=== PATIENT | female | born 1990 | race Caucasian/White ===

== ENCOUNTER 2017-01-06 21:15 | Emergency (ER) | payer OTHER ==
[2017-01-06] MEDS ORDERED: Ketorolac 60 MG/2 ML SDV IM ONE (22:18)
[2017-01-06] MEDS ORDERED: Acetaminophen/HYDROcodone 325-5 MG Tab PO ONE (22:21)
--- NOTE | 2017-01-06 22:25 | EDM.PDOC ---
ED HPI LOWER BACK PAIN/INJURY - General Chief Complaint: Back Pain or Injury Stated Complaint: BACK PAIN Time Seen by Provider: 01/06/17 21:33 Source of Information: Reports: Patient History Limitations: Reports: No limitations - History of Present Illness INITIAL COMMENTS - FREE TEXT/NARRATIVE: HISTORY AND PHYSICAL: History of present illness: [26-year-old female with no significant past medical history now came to the emergency department after injuring her low back. Patient is entering a "[employer] competition "and was gaining tonight by lifting 300 pounds in a " lift. " She experienced a sudden onset of pain in the right low back radiating into her buttock. Patient with no loss of bowel or bowel bladder control and no numbness or weakness her legs however she does have severe pain with movement. Denies spinal pain. No prior injury herniated disc or back problems. Review of systems: As per history of present illness and below otherwise all systems reviewed and negative. Past medical history: As per history of present illness and as reviewed below otherwise noncontributory. Surgical history: As per history of present illness and as reviewed below otherwise noncontributory. Social history: No reported history of drug or alcohol abuse. Family history: As per history of present illness and as reviewed below otherwise noncontributory. Physical exam: HEENT: Atraumatic, normocephalic, pupils reactive, negative for conjunctival pallor or scleral icterus, mucous membranes moist, throat clear, neck supple, nontender, trachea midline. Lungs: Clear to auscultation, breath sounds equal bilaterally, chest nontender. Heart: S1S2, regular, negative for clicks, rubs, or JVD. Abdomen: Soft, nondistended, nontender. Negative for masses or hepatosplenomegaly. Negative for costovertebral tenderness. Pelvis: Stable nontender. Genitourinary: Deferred. Rectal: Deferred. Extremities: Atraumatic, negative for cords or calf pain. Neurovascular unremarkable. Neuro: Awake, alert, oriented. Cranial nerves II through XII unremarkable. Cerebellum unremarkable. Motor and sensory unremarkable throughout. Exam nonfocal. No saddle anesthesia negative straight leg raise bilaterally neurovascularly intact bilateral lower extremity with normal and symmetrical strength sensation and reflexes. Diagnostics: [] Therapeutics: [] Impression: [] Plan: [Signs and symptoms consistent with right lumbar strain. No signs of spinal fracture. No spinal tenderness whatsoever. No clinical evidence of cauda equina syndrome. Negative straight leg raise. Discussed with patient use of anti- inflammatory and antispasmodic medications as needed. Patient aware not to drink alcohol with antispasmodic medications. Patient is aware to abstain from sinus activity until her symptoms are completely resolved and even then I recommended against it given the high risk of significant and even debilitating injury. Patient will make her on decisions regarding his activity. No further workup or treatment indicated. Patient and agree with outpatient followup. Strict return precautions given Definitive disposition and diagnosis as appropriate pending reevaluation and review of above. 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 Musculoskeletal History: Reports: None Neurological History: Reports: None Psychiatric History: Reports: None Endocrine/Metabolic History: Reports: None Hematologic History: Reports: None Immunologic History: Reports: None Oncologic (Cancer) History: Reports: None Dermatologic History: Reports: None - Infectious Disease History Infectious Disease History: Reports: None - Past Surgical History Head Surgeries/Procedures: Reports: None HEENT Surgical History: Reports: None Cardiovascular Surgical History: Reports: None Respiratory Surgical History: Reports: None GI Surgical History: Reports: None Female Surgical History: Reports: None Endocrine Surgical History: Reports: None Neurological Surgical History: Reports: None Musculoskeletal Surgical History: Reports: None Dermatological Surgical History: Reports: None Social & Family History - Family History Family Medical History: Noncontributory - Tobacco Use Smoking Status *Q: Never Smoker Second Hand Smoke Exposure: No - Caffeine Use Caffeine Use: Reports: None - Recreational Drug Use Recreational Drug Use: No ED ROS GENERAL - Review of Systems Review Of Systems: See Below (History of present illness) ED EXAM,LOWER BACK PAIN/INJURY - Physical Exam Exam: See Below (History of present illness) Course - Vital Signs Last Recorded V/S: Last Vital Signs Temp 37.0 C 01/06/17 22:58 Pulse 70 01/06/17 22:58 Resp 16 01/06/17 22:58 BP 120/74 01/06/17 22:58 Pulse Ox 98 01/06/17 22:58 - Orders/Labs/Meds Meds: Medications Discontinued Medications Generic Name Dose Route Start Last Admin Trade Name Leroy PRN Reason Stop Dose Admin Hydrocodone Bitart/Acetaminophen 1 tab 01/06/17 22:21 01/06/17 22:39 [place] 325-5 Mg PO 01/06/17 22:22 1 tab ONETIME ONE Administration Ketorolac Tromethamine 60 mg 01/06/17 22:18 01/06/17 22:39 Toradol IM 01/06/17 22:19 60 mg ONETIME ONE Administration Orphenadrine Citrate 60 mg 01/06/17 22:21 01/06/17 22:39 Norflex IM 01/06/17 22:22 60 mg Q12H ONE Administration Departure - Departure Time of Disposition: 22:23 Disposition: Home, Self-Care 01 Condition: fair Clinical Impression: Lumbar strain, Back spasm Prescriptions: Cyclobenzaprine [Flexeril] 10 mg PO TID #15 tablet Instructions: Back Injury Prevention, [id number], Back Pain, Adult, Easy-to- Read, Muscle Strain, [id number] Referrals: PCP,None [Primary Care Provider] - Forms: ED Department Discharge Additional Instructions: You have lumbar, or low back, strain. This is an injury to the muscles. You also have low back spasm, which is painful muscle contracture as a result of injury. Take 800 mg of ibuprofen every 6 hours and use Flexeril ,a muscle relaxant that has been prescribed for you, as needed for spasm. Use ice for the first day and then do gentle stretches and warms soaks. Void strenuous activity until your symptoms are completely resolved. Return immediately for new severe or worsening symptoms
[2017-01-06 23:02] VITALS: BP 120/74
== END 2017-01-06 22:58 | disposition home or self-care (01) ==
LOC: MW.ED 21:15
DX: S39.012A Strain of muscle, fascia and tendon of lower back, initial encounter (principal); X58.XXXA Exposure to other specified factors, initial encounter
CPT/HCPCS: 96372; 99283; A9270; J1885; J2360

== ENCOUNTER 2017-12-26 07:40 | Day surgery (SDC) | payer BC ==
[~2017-12-26 07:40] MED LIST: Bupivacaine 0.5% 30 ML SDV ONE; Lactated Ringers 1,000 ML IV SCH; Lidocaine 2% 5 ML SDV ONE; Midazolam 1 MG/ML 2 ML SDV ONE; Propofol 200 MG/20 ML SDV ONE; Rocuronium 10 MG/ML 10 ML Syringe ONE; Sodium Chloride 0.9% 10 ML Syringe FLUSH PRN; Sodium Chloride 0.9% 2.5 ML Syringe FLUSH PRN; Succinylcholine 200 MG/10 ML MDV ONE; ceFAZolin 1 GM in Premix Bag 1 BAG IV ONE; fentaNYL 100 MCG/2 ML SDV ONE
[2017-12-26] MEDS ORDERED: Scopolamine 1.5 MG Transdermal Patch ONE (08:27)
[2017-12-26] MEDS ORDERED: Dexamethasone 4 MG/ML 5 ML MDV ONE (09:21)
[2017-12-26] MEDS ORDERED: fentaNYL 100 MCG/2 ML SDV ONE (09:40)
[2017-12-26] MEDS ORDERED: fentaNYL 100 MCG/2 ML SDV IVPUSH PRN (09:52)
[2017-12-26] MEDS ORDERED: Glycopyrrolate 0.2 MG/ML SDV ONE (09:56)
[2017-12-26] MEDS ORDERED: Neostigmine Methylsulfate 1 MG/ML 5 ML Syringe ONE (09:56)
--- NOTE | 2017-12-26 09:56 | PCM.PREANE ---
Preanesthetic Assessment - Anesthesia/Transfusion/Family Hx Anesthesia History: No Prior Anesthesia Family History of Anesthesia Reaction: No Transfusion History: No Prior Transfusion(s) Intubation History: Unknown - Review of Systems General: No Symptoms Pulmonary: No Symptoms Cardiovascular: No Symptoms Gastrointestinal: Abdominal Pain Neurological: No Symptoms Other: Reports: None - Physical Assessment Height: 1.68 m Weight: 66.678 kg ASA Class: 1 Mental Status: Alert & Oriented x3 Airway Class: Mallampati = 2 Dentition: Reports: Normal Dentition Thyro-Mental Finger Breadths: 3 Mouth Opening Finger Breadths: 3 ROM/Head Extension: Full Lungs: Clear to Auscultation, Normal Respiratory Effort Cardiovascular: Regular Rate, Regular Rhythm - Allergies Allergies/Adverse Reactions: Allergies Allergy/AdvReac Type Severity Reaction Status Date / Time No Known Allergies Allergy Verified 12/21/17 10:55 - Blood Blood Available: No - Anesthesia Plan Pre-Op Medication Ordered: None - Acknowledgements Anesthesia Type Planned: General Anesthesia Pt an Appropriate Candidate for the Planned Anesthesia: Yes Alternatives and Risks of Anesthesia Discussed w Pt/Guardian: Yes Pt/Guardian Understands and Agrees with Anesthesia Plan: Yes PreAnesthesia Questionnaire - Past Health History Medical/Surgical History: Denies Medical/Surgical History HEENT History: Reports: None Cardiovascular History: Reports: None Respiratory History: Reports: None Gastrointestinal History: Reports: Other (See Below) (cholecustitis) Genitourinary History: Reports: None 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, Other (See Below) (h/o ovarian cyst) Musculoskeletal History: Reports: None Neurological History: Reports: None Psychiatric History: Reports: None Endocrine/Metabolic History: Reports: None Hematologic History: Reports: None Immunologic History: Reports: None Oncologic (Cancer) History: Reports: None Dermatologic History: Reports: None - Infectious Disease History Infectious Disease History: Reports: None - Past Surgical History Head Surgeries/Procedures: Reports: None HEENT Surgical History: Reports: None Cardiovascular Surgical History: Reports: None Respiratory Surgical History: Reports: None GI Surgical History: Reports: None Female Surgical History: Reports: None Endocrine Surgical History: Reports: None Neurological Surgical History: Reports: None Musculoskeletal Surgical History: Reports: None Dermatological Surgical History: Reports: None - SUBSTANCE USE Smoking Status *Q: Never Smoker Second Hand Smoke Exposure: No Recreational Drug Use History: No - HOME MEDS Home Medications: Home Meds . [No Known Home Meds] 12/21/17 [History] - CURRENT (IN HOUSE) MEDS Current Meds: Current Medications Fentanyl (Sublimaze) 50 - 100 mcg IVPUSH Q5M PRN PRN Reason: Pain Stop: 12/26/17 10:52 Lactated Ringer's (Ringers, Lactated) 1,000 mls @ 125 mls/hr IV ASDIRECTED KALEY Sodium Chloride (Saline Flush) 10 ml FLUSH ASDIRECTED PRN PRN Reason: Keep Vein Open Sodium Chloride (Saline Flush) 2.5 ml FLUSH ASDIRECTED PRN PRN Reason: Keep Vein Open Discontinued Medications Bupivacaine HCl (Marcaine 0.5%) Confirm Administered Dose 30 ml .ROUTE .STK-MED ONE Stop: 12/26/17 07:35 Dexamethasone (Dexamethasone) Confirm Administered Dose 20 mg .ROUTE .STK-MED ONE Stop: 12/26/17 09:22 Fentanyl (Sublimaze) Confirm Administered Dose 100 mcg .ROUTE .STK-MED ONE Stop: 12/26/17 07:30 Fentanyl (Sublimaze) Confirm Administered Dose 100 mcg .ROUTE .STK-MED ONE Stop: 12/26/17 09:41 Cefazolin Sodium/Dextrose 1 gm (/ Premix) 50 mls @ 100 mls/hr IV ONETIME ONE Stop: 12/25/17 11:14 Cefazolin Sodium/Dextrose (Ancef) Confirm Administered Dose 50 mls @ as directed .ROUTE .STK-MED ONE Stop: 12/26/17 08:28 Lidocaine (Xylocaine-Mpf 2%) Confirm Administered Dose 5 ml .ROUTE .STK-MED ONE Stop: 12/26/17 07:30 Midazolam HCl (Versed 1 Mg/Ml) Confirm Administered Dose 2 mg .ROUTE .STK-MED ONE Stop: 12/26/17 07:30 Propofol (Diprivan 20 Ml) Confirm Administered Dose 200 mg .ROUTE .STK-MED ONE Stop: 12/26/17 07:30 Rocuronium [place] (Zemuron) Confirm Administered Dose 100 mg .ROUTE .STK-MED ONE Stop: 12/26/17 07:30 Scopolamine (Transderm-Scop) Confirm Administered Dose 1.5 mg .ROUTE .STK-MED ONE Stop: 12/26/17 08:28 Succinylcholine Chloride (Quelicin) Confirm Administered Dose 200 mg .ROUTE .[facility] ONE Stop: 12/26/17 07:31
[2017-12-26] MEDS ORDERED: Ondansetron 4 MG/2 ML SDV ONE (09:58)
[2017-12-26] MEDS ORDERED: Ketorolac 30 MG/ML SDV ONE (09:58)
--- NOTE | 2017-12-26 10:04 | PCM.OPNOTE ---
- General Post-Op/Procedure Note Date of Surgery/Procedure: 12/26/17 Operative Procedure(s): Laparoscopic cholecystectomy Findings: Normal appearing gallbladder. Pre Op Diagnosis: Biliary dyskinesia Post-Op Diagnosis: same Anesthesia Technique: General ET Tube Primary Surgeon: Michelle Cheung Secondary Surgeon: Madi Alfaro Role of Bellows Tester: Resident EBL in mLs: 5 Condition: Good
--- NOTE | 2017-12-26 10:54 | PCM.POSTAN ---
POST ANESTHESIA ASSESSMENT - MENTAL STATUS Mental Status: Alert, Oriented - RESPIRATORY Respiratory Status: Respiratory Rate WNL, Airway Patent, O2 Saturation Stable - CARDIOVASCULAR CV Status: Pulse Rate WNL, Blood Pressure Stable - GASTROINTESTINAL GI Status: No Symptoms - PAIN Pain Score: 2 - POST OP HYDRATION Hydration Status: Adequate & Stable - OBSERVATIONS Free Text/Narrative:: no anesthesia problems
[2017-12-26 12:57] VITALS: BP 118/67
--- NOTE | 2017-12-26 13:05 | PCM48HPAN ---
Post Anesthesia Note - EVALUATION WITHIN 48HRS OF ANESTHETIC Vital Signs in Normal Range: Yes Patient Participated in Evaluation: Yes Respiratory Function Stable: Yes Airway Patent: Yes Cardiovascular Function Stable: Yes Hydration Status Stable: Yes Pain Control Satisfactory: Yes Nausea and Vomiting Control Satisfactory: Yes Mental Status Recovered: Yes Resp Rate: 16
--- NOTE | 2017-12-26 13:29 | OR ---
SURGEON: KATHY FELDMAN MD DATE OF PROCEDURE: 12/26/2017 PREOPERATIVE DIAGNOSIS: Biliary dyskinesia. POSTOPERATIVE DIAGNOSIS: Biliary dyskinesia. PROCEDURE PERFORMED: Laparoscopic cholecystectomy. LOCATOR: Dr. Madi Alfaro, resident. ANESTHESIA: General endotracheal anesthesia. FLUIDS: 900 mL of crystalloid. URINE OUTPUT: 375 mL. ESTIMATED BLOOD LOSS: 10 mL. FINDINGS: Normal appearing gallbladder. COMPLICATIONS: None. INDICATIONS: The patient is a 27-year-old female, who presents with biliary dyskinesia. I explained to her that the treatment for this is removal of the gallbladder. We discussed the laparoscopic and open approaches. I will attempt this laparoscopically, but should I be unable to complete it safely, I will convert it to open. We discussed the expected perioperative course and the risks of the procedure including bleeding, infection, or damage to surrounding structures. The patient verbalized understanding and wishes to proceed. PROCEDURE IN DETAIL: The patient was brought into the OR and placed on the OR table in supine position. A time-out was completed verifying the patient's name, age, date of , allergies, and procedure to be performed. General endotracheal anesthesia was induced. The left arm was tucked to the patient's side and a Lewis catheter placed. The abdomen was prepped and draped in usual standard fashion. I anesthetized the infraumbilical fold with 0.5% Marcaine plain. An #11 blade was used to make an incision along the infraumbilical fold. Cautery was used to dissect down to the level of the subcutaneous fat. Retractors were used to bluntly dissect down to the level of fascia. The fascia was elevated with Narciso's and incised sharply with a Metzenbaum scissors. I then identified the posterior rectus sheath. This was elevated and incised similarly. The peritoneum was then identified. This was grasped with hemostats and incised sharply. A 12 mm Arya trocar was placed in the abdomen, and the abdomen insufflated to a pressure of 13 mmHg. A 5 mm 30-degree scope was inserted in the abdomen and I inspected the area underneath my incision. There appeared to be no damage to surrounding structures. 5 mm trocars were placed under direct visualization in the following locations, one in the epigastric area, one along the right flank, and one 2 fingerbreadths below the right subcostal margin in the midclavicular line. The patient was placed in reverse Trendelenburg position and airplaned slightly to the left. The dome of the gallbladder was grasped with an atraumatic grasper through the right flank port and elevated above the dome of the liver. The infundibulum was identified and grasped with another atraumatic grasper through the midclavicular port. This was retracted to the right and inferiorly. Using a combination of hook cautery and blunt dissection with the [place], we were able to achieve critical view. Cystic duct and artery were doubly clipped and ligated. Electrocautery was used to remove the gallbladder from the remainder of the gallbladder fossa. The gallbladder was placed in an EndoCatch bag and removed through the infraumbilical port site. The 12 mm Arya trocar was placed back in the abdomen and the operative site inspected. It appeared to be hemostatic and the clips were in good position with no evidence of bile leakage. The trocars were then removed under direct visualization, and the abdomen allowed to desufflate. The fascia at the infraumbilical site was closed with interrupted 0 Vicryl suture. The infraumbilical port site was closed with interrupted 3-0 Vicryl and the subcutaneous fat in a running 4-0 Monocryl suture and the skin. The 5 mm trocar sites were closed with interrupted 4-0 Monocryl suture. Steri-Strips and sterile dressings were applied. The patient tolerated the procedure well and was taken to PACU in stable condition. MARJORIE MCNAIR /[id number]
== END 2017-12-26 13:01 | disposition home or self-care (01) ==
LOC: MW.SDS 07:40
PROVIDERS: ATTEND Surgery
DX: K81.1 Chronic cholecystitis (principal)
CPT/HCPCS: 47562; 81025; J0330; J0690; J1100; J1885; J2250; J2405; J3010; 88304; J2704

== ENCOUNTER 2019-02-14 17:18 | Emergency (ER) | payer OTHER ==
[2019-02-14] MEDS ORDERED: Metoclopramide 10 MG/2 ML SDV IV ONE (17:34)
[2019-02-14] MEDS ORDERED: Ondansetron 4 MG/2 ML SDV IVPUSH ONE (17:34)
[2019-02-14] MEDS ORDERED: diphenhydrAMINE 50 MG/ML SDV IVPUSH ONE (17:34)
[2019-02-14] MEDS ORDERED: Ketorolac 30 MG/ML SDV IVPUSH ONE (17:34)
[2019-02-14] MEDS ORDERED: Sodium Chloride 0.9% 1,000 ML IV ONE (17:34)
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
[2019-02-14 19:18] VITALS: BP 112/64
== END 2019-02-14 18:37 | disposition home or self-care (01) ==
LOC: MW.ED 17:18
DX: G43.909 Migraine, unspecified, not intractable, without status migrainosus (principal)
CPT/HCPCS: 96361; 96374; 96375; 99283; J1200; J1885; J2405; J2765; J7040

== ENCOUNTER 2019-10-19 23:51 | Emergency (ER) | payer OTHER ==
--- NOTE | 2019-10-20 00:45 | EDM.PDOC ---
ED HPI GENERAL MEDICAL PROBLEM - General Chief Complaint: Skin Complaint Stated Complaint: RADH EVERYWHERE Time Seen by Provider: 10/20/19 00:54 Source of Information: Reports: Patient History Limitations: Reports: No Limitations - History of Present Illness INITIAL COMMENTS - FREE TEXT/NARRATIVE: HISTORY OF PRESENT ILLNESS: Patient is a 29-year-old female presents with rash. Approximately 10 days ago, she was diagnosed with tonsillitis by clinical examination. According to patient, no strep test was done. She was started on amoxicillin which she has been taking intermittently and has missed several doses. States sore throat has now resolved. Today, however she developed a diffuse pruritic maculopapular rash. There is no mucous membrane involvement. No palm or sole involvement. Denies any pain. No fever. No difficulty breathing or wheezing. Denies any other new medications, products, etc. REVIEW OF SYSTEMS: Other than the symptoms associated with the present events, the following is reported with regard to recent health: General: (-) fever. HENT: (-) congestion. Respiratory: (-) cough. Cardiovascular: (-) chest pain. GI: (-) abdominal pain. : (-) urinary complaints. Musculoskeletal: (-) other aches or pains. Endocrine: (-) generalized weakness. Neurological: (-) localized weakness. Skin: (+) rash PAST MEDICAL HISTORY: reviewed as per nursing notes SOCIAL HISTORY: reviewed as per nursing notes, MEDICATIONS: Per nurse's note ALLERGIES: Per nurse's note, reviewed by me PHYSICAL EXAMINATION: GENERALIZED APPEARANCE: well developed, well nourished in no distress VITAL SIGNS: Per nurse's note, reviewed by me SKIN: Warm, dry; (-) cyanosis; (+) diffuse macularpapular rash. no target lesions. no vesicles. no MM or palm/sole involvement HEAD: (-) scalp swelling, (-) tenderness. EYES: (-) conjunctival pallor, (-) scleral icterus. ENMT: (-) stridor; mucous membranes moist. No pharyngeal erythema. Uvula midline. No trismus. No phonation changes. Airway widely patent. NECK: (-) tenderness, (-) stiffness, CHEST AND RESPIRATORY: (-) rales, (-) rhonchi, (-) wheezes; breath sounds equal bilaterally. HEART AND CARDIOVASCULAR: (-) irregularity; (-) murmur, (-) gallop. ABDOMEN AND GI: Soft; (-) tenderness, (-) guarding, (-) rebound, (-) palpable masses, EXTREMITIES: (-) deformity, (-) edema. NEURO AND PSYCH: alert and oriented Cranial nerves grossly intact; strength symmetric. gait steady EMERGENCY DEPARTMENT COURSE AND TREATMENT: Patient's condition remained stable during Emergency Department evaluation. Etiology of rash likely due to side effect of amoxicillin. No evidence of anaphylaxis at this time. Will treat symptomatically with Benadryl. Expect rash to resolve with tincture of time. PLAN AND FOLLOW-UP: Patient received written and verbal instructions regarding this condition. Return immediately with any new or worsening symptoms. Discontinue use of amoxicillin and do not use any penicillin-containing products unless instructed otherwise by PCP. To have allergy testing done. Follow up to be arranged by patient with pcp in 1-2 days for further evaluation. Patient expressed verbal understanding. 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: Musculoskeletal History: Reports: None Neurological History: Reports: None Psychiatric History: Reports: None Endocrine/Metabolic History: Reports: None Hematologic History: Reports: Other (See Below) Other Hematologic History: thrombocytopenia during Immunologic History: Reports: None Oncologic (Cancer) History: Reports: None Dermatologic History: Reports: None - Infectious Disease History Infectious Disease History: Reports: None - Past Surgical History Head Surgeries/Procedures: Reports: None GI Surgical History: Reports: Cholecystectomy Female Surgical History: Reports: Breast Biopsy Social & Family History - Family History Family Medical History: Noncontributory OBGYN: Reports: Oncologic: Reports: Breast - Caffeine Use Caffeine Use: Reports: None ED ROS GENERAL - Review of Systems Review Of Systems: See Below (see dictation) ED EXAM, SKIN/RASH Exam: See Below (see dictation) Course - Vital Signs Last Recorded V/S: Last Vital Signs Temp 97.8 F 10/20/19 01:03 Pulse 79 10/20/19 01:03 Resp 14 10/20/19 01:03 BP 111/73 10/20/19 01:03 Pulse Ox 96 10/20/19 01:03 Departure - Departure Time of Disposition: 00:43 Disposition: Home, Self-Care 01 Condition: Good Clinical Impression: Rash and nonspecific skin eruption - Discharge Information *PRESCRIPTION DRUG MONITORING PROGRAM REVIEWED*: Not Applicable *COPY OF PRESCRIPTION DRUG MONITORING REPORT IN PATIENT ROSELIA: Not Applicable Prescriptions: diphenhydrAMINE [Benadryl] 25 mg PO QID PRN #30 tablet PRN Reason: itching/rash Instructions: Drug Rash, Rash Referrals: Jay Zhang [Ordering Only Provider] - 2 Days Forms: ED Department Discharge Additional Instructions: The following information is given to patients seen in the emergency department who are being discharged to home. This information is to outline your options for follow-up care. We provide all patients seen in our emergency department with a follow-up referral. The need for follow-up, as well as the timing and circumstances, are variable depending upon the specifics of your emergency department visit. If you don't have a primary care physician on staff, we will provide you with a referral. We always advise you to contact your personal physician following an emergency department visit to inform them of the circumstance of the visit and for follow-up with them and/or the need for any referrals to a consulting specialist. The emergency department will also refer you to a specialist when appropriate. This referral assures that you have the opportunity for follow-up care with a specialist. All of these measure are taken in an effort to provide you with optimal care, which includes your follow-up. Under all circumstances we always encourage you to contact your private physician who remains a resource for coordinating your care. When calling for follow-up care, please make the office aware that this follow-up is from your recent emergency room visit. If for any reason you are refused follow-up, please contact the [facility] Emergency Department at and asked to speak to the emergency department charge nurse. Sepsis Event Note - Evaluation Sepsis Screening Result: No Definite Risk - Focused Exam Vital Signs: Vital Signs Temp Pulse Resp BP Pulse Ox 10/20/19 01:03 97.8 F 79 14 111/73 96 10/20/19 00:06 97.1 F 84 18 132/96 H Date Exam was Performed: 10/20/19 Time Exam was Performed: 05:02
[2019-10-20 01:03] VITALS: BP 111/73; PULSE 79
== END 2019-10-20 01:04 | disposition home or self-care (01) ==
LOC: MW.ED 23:51
DX: R21 Rash and other nonspecific skin eruption (principal)
CPT/HCPCS: 99282; 99283

== ENCOUNTER 2020-08-11 05:26 | Inpatient (IN) | payer OTHER ==
[2020-08-11] MEDS ORDERED: Sodium Chloride 0.9% 10 ML Syringe FLUSH PRN (05:29)
[2020-08-11] MEDS ORDERED: Citric Acid/Sodium Citrate Solution 30 ML Cup PO ONE (05:29)
[2020-08-11] MEDS ORDERED: Sodium Chloride 0.9% 2.5 ML Syringe FLUSH PRN (05:29)
[2020-08-11] MEDS ORDERED: Sodium Chloride 0.9% 10 ML SDV IV PRN (05:29)
[2020-08-11] MEDS ORDERED: Oxytocin/0.9 % Sodium Chloride 30 UNIT/500 ML BAG IV SCH (05:30)
[2020-08-11] MEDS: Lactated Ringers 1,000 ML IV SCH ×4 (06:00→20:02)
[2020-08-11] MEDS ORDERED: Morphine PF 10 MG/10 ML SDV ONE (07:36)
[2020-08-11] MEDS ORDERED: Citric Acid/Sodium Citrate Solution 30 ML Cup ONE (07:50)
[2020-08-11] MEDS ORDERED: Clindamycin Phosphate in D5W 900 MG in Premix Bag 1 BAG IV ONE ×2 (08:00)
--- NOTE | 2020-08-11 08:08 | PCM.PREANE ---
Preanesthetic Assessment - Anesthesia/Transfusion/Family Hx Anesthesia History: Prior Anesthesia Without Reaction Family History of Anesthesia Reaction: No Transfusion History: No Prior Transfusion(s) Intubation History: Unknown - Review of Systems General: No Symptoms, Other Pulmonary: Other (runny nose) Cardiovascular: No Symptoms Gastrointestinal: No Symptoms Neurological: No Symptoms Other: Reports: None - Physical Assessment NPO Status Date: 08/11/20 NPO Status Time: 07:50 (bicitra) Vital Signs: 134/90, 19, 90, spo2 99% Height: 1.65 m Weight: 93.894 kg ASA Class: 2 Mental Status: Alert & Oriented x3 Airway Class: Mallampati = 2 Dentition: Reports: Normal Dentition Thyro-Mental Finger Breadths: 3 Mouth Opening Finger Breadths: 3 ROM/Head Extension: Full Lungs: Clear to Auscultation, Normal Respiratory Effort Cardiovascular: Regular Rate, Regular Rhythm - Lab Values: Laboratory Last Values WBC 10.29 K/uL (4.0-11.0) 08/11/20 06:27 RBC 3.87 M/uL (4.30-5.90) L 08/11/20 06:27 Hgb 10.7 g/dL (12.0-16.0) L 08/11/20 06:27 Hct 33.9 % (36.0-46.0) L 08/11/20 06:27 MCV 87.6 fL (80.0-98.0) 08/11/20 06:27 MCH 27.6 pg (27.0-32.0) 08/11/20 06:27 MCHC 31.6 g/dL (31.0-37.0) 08/11/20 06:27 RDW Std Deviation 43.0 fl (28.0-62.0) 08/11/20 06:27 RDW Coeff of Veronica 14 % (11.0-15.0) 08/11/20 06:27 Plt Count 126 K/uL (150-400) L 08/11/20 06:27 MPV 13.90 fL (7.40-12.00) H 08/11/20 06:27 Nucleated RBC % 0.0 /100WBC 08/11/20 06:27 Nucleated RBCs # 0 K/uL 08/11/20 06:27 Blood Type A NEGATIVE 08/11/20 06:27 Antibody Screen NEGATIVE 08/11/20 06:27 - Allergies Allergies/Adverse Reactions: Allergies Allergy/AdvReac Type Severity Reaction Status Date / Time Penicillins Allergy Hives Verified 08/05/20 08:22 - Anesthesia Plan Pre-Op Medication Ordered: Other (bicitra) - Acknowledgements Anesthesia Type Planned: Spinal (The patient understands and accepts the anesthetic risks and benefits with spinal anesthesia including possible failure regarding conversion to general anesthetic. All questions answered. Patient signed consent. 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: Musculoskeletal History: Reports: None Other Musculoskeletal History: hx fx leg Neurological History: Reports: None Psychiatric History: Reports: None Endocrine/Metabolic History: Reports: Obesity/BMI 30+ Hematologic History: Reports: Other (See Below) Other Hematologic History: thrombocytopenia during Immunologic History: Reports: None Oncologic (Cancer) History: Reports: None Dermatologic History: Reports: None - Infectious Disease History Infectious Disease History: Reports: Chicken Pox - Past Surgical History Head Surgeries/Procedures: Reports: None HEENT Surgical History: Reports: None Cardiovascular Surgical History: Reports: None Respiratory Surgical History: Reports: None GI Surgical History: Reports: Cholecystectomy Female Surgical History: Reports: Breast Biopsy, Section Endocrine Surgical History: Reports: None Neurological Surgical History: Reports: None Dermatological Surgical History: Reports: None - History Comment History Comment: case delay waiting for antibiotics - SUBSTANCE USE Tobacco Use Status *Q: Never Tobacco User Second Hand Smoke Exposure: No Days Per Week of Alcohol Use: 0 (while . drinks "recreationally" when she is not .) Recreational Drug Use History: No - HOME MEDS Home Medications: Home Meds . [No Known Home Meds] 08/05/20 [History] - CURRENT (IN HOUSE) MEDS Current Meds: Current Medications Oxytocin/Sodium Chloride (Oxytocin 30 Unit/500 Ml-Ns) 30 unit in 500 mls @ 250 mls/hr IV TITRATE KALEY Lactated Ringer's (Ringers, Lactated) 1,000 mls @ 500 mls/hr IV BOLUS KALEY Last Admin: 08/11/20 07:45 Dose: 500 mls/hr Documented by: Clindamycin Phosphate 900 mg/ (Premix) 50 mls @ 100 mls/hr IV ONETIME ONE Stop: 08/11/20 08:29 Gentamicin Sulfate 80 mg/ (Sodium Chloride) 52 mls @ 100 mls/hr IV ONETIME ONE Stop: 08/11/20 08:32 Sodium Chloride (Saline Flush) 10 ml FLUSH ASDIRECTED PRN PRN Reason: Keep Vein Open Sodium Chloride (Saline Flush) 2.5 ml FLUSH ASDIRECTED PRN PRN Reason: Keep Vein Open Sodium Chloride (Normal Saline) 10 ml IV ASDIRECTED PRN PRN Reason: IV Use Discontinued Medications Citric Acid/Sodium Citrate (Bicitra Solution) 30 ml PO ONETIME ONE Stop: 08/11/20 05:30 Last Admin: 08/11/20 07:52 Dose: 30 ml Documented by: Citric Acid/Sodium Citrate (Bicitra Solution) Confirm Administered Dose 30 ml .ROUTE .STK-MED ONE Stop: 08/11/20 07:51 Morphine Sulfate (Duramorph Pf) Confirm Administered Dose 10 mg .ROUTE .STK-MED ONE Stop: 08/11/20 07:37
[2020-08-11] MEDS ORDERED: Oxytocin 10 Units/1 ML SDV ONE (08:14)
[2020-08-11] MEDS ORDERED: Acetaminophen/oxyCODONE 325-5 MG Tab PO PRN ×3 (08:48→10:09)
[2020-08-11] MEDS ORDERED: fentaNYL 100 MCG/2 ML SDV IVPUSH PRN (08:48)
[2020-08-11] MEDS ORDERED: Nalbuphine 10 MG/1 ML Vial IVPUSH PRN (08:48)
[2020-08-11] MEDS ORDERED: Ondansetron 4 MG/2 ML SDV ONE ×2 (08:50→09:18)
[2020-08-11] MEDS ORDERED: ePHEDrine 50 MG/ML SDV ONE (08:50)
[2020-08-11] MEDS ORDERED: Dexamethasone 4 MG/ML 5 ML MDV ONE (09:11)
[2020-08-11] MEDS ORDERED: Ketorolac 30 MG/ML SDV ONE (09:11)
[2020-08-11] MEDS ORDERED: Lanolin 100% Cream 7 GM Tube TOP PRN (10:09)
[2020-08-11] MEDS ORDERED: diphenhydrAMINE 50 MG/ML SDV IVPUSH PRN (10:09)
[2020-08-11] MEDS ORDERED: Tranexamic Acid 1,000 MG in Sodium Chloride 0.9% 100 ML IV PRN (10:09)
[2020-08-11] MEDS ORDERED: Misoprostol 200 MCG Tab RECTAL PRN (10:09)
[2020-08-11] MEDS ORDERED: Oxytocin 10 Units/1 ML SDV IM PRN (10:09)
[2020-08-11] MEDS ORDERED: Methylergonovine 0.2 MG/1 ML Amp IM PRN (10:09)
[2020-08-11] MEDS ORDERED: Bisacodyl 10 MG Supp RECTAL PRN (10:09)
[2020-08-11] MEDS ORDERED: Oxytocin/Lactated Ringers 30 UNIT/500 ML BAG IV SCH (10:15)
--- NOTE | 2020-08-11 10:19 | PCM.OPNOTE ---
- General Post-Op/Procedure Note Date of Surgery/Procedure: 08/11/20 Operative Procedure(s): Repeat Lower segment Transverse Findings: Live male delivered at 901am , 9/9 weight 3060g Pre Op Diagnosis: 29yo @ 39w0d for repeat Post-Op Diagnosis: same Anesthesia Technique: Spinal Primary Surgeon: Dulce Arreaga Anesthesia Provider: Carlita Pro Pathology: Placenta Fluid Replacement, Intraop: 2,900 Output, Urine Amount: 100 EBL in mLs: 500 Complications: None Condition: Good
--- NOTE | 2020-08-11 10:26 | PCM.POSTAN ---
POST ANESTHESIA ASSESSMENT - MENTAL STATUS Mental Status: Alert, Oriented - RESPIRATORY Respiratory Status: Respiratory Rate WNL, Airway Patent, O2 Saturation Stable - CARDIOVASCULAR CV Status: Pulse Rate WNL, Blood Pressure Stable - GASTROINTESTINAL GI Status: No Symptoms - POST OP HYDRATION Hydration Status: Adequate & Stable
[2020-08-11] MEDS: Ketorolac 30 MG/ML SDV IVPUSH SCH ×3 (11:26→21:31)
[2020-08-11] MEDS: Ondansetron 4 MG/2 ML SDV IVPUSH PRN ×2 (13:06→18:22)
[2020-08-11] MEDS ORDERED: Metoclopramide 10 MG/2 ML SDV IVPUSH ONE (15:03)
[2020-08-11] MEDS ORDERED: Ondansetron 4 MG/2 ML SDV IVPUSH ONE (15:03)
[2020-08-11] MEDS ORDERED: Scopolamine 1.5 MG Transdermal Patch TRDERM PRN (20:16)
[2020-08-11] MEDS: Dexamethasone 10 MG/ML SDV IVPUSH SCH (21:01)
[2020-08-11] MEDS: Docusate Sodium 100 MG Cap PO SCH (22:06)
[2020-08-12] MEDS: Ketorolac 30 MG/ML SDV IVPUSH SCH ×2 (03:34→09:40)
[2020-08-12] MEDS ORDERED: Dexamethasone 10 MG/ML SDV IVPUSH PRN (03:45)
[2020-08-12] MEDS: Dexamethasone 10 MG/ML SDV IVPUSH SCH (04:03)
--- NOTE | 2020-08-12 07:37 | OR ---
SURGEON: WILBERT KWOK DATE OF PROCEDURE: 08/11/2020 PREOPERATIVE DIAGNOSES: 1. A 29-year-old G2, P1-0-0-1 at 39 weeks 0 days for repeat section. 2. She is also Rh-negative, gestational thrombocytopenia. POSTOPERATIVE DIAGNOSES: 1. 29-year-old G2, P1-0-0-1 at 39 weeks 0 days for repeat section. 2. She is also Rh-negative, gestational thrombocytopenia. PROCEDURE: Repeat lower segment section. ANAESTHESIA Spinal ESTIMATED BLOOD LOSS: 500. INTRAVENOUS FLUID: 2900. URINE OUTPUT: 100. NOTES AND FINDINGS: A live male delivered at 9:01 a.m., scores are 9 and 9, weight is 3060 g. DESCRIPTION OF PROCEDURE: The patient was taken to the operating room where spinal anesthesia was performed without difficulty. She was prepared and draped in the dorsal supine with a leftward tilt. A Pfannenstiel skin incision was made in the area of the previous incision and carried down to the fascia with the Bovie. The fascia was incised and extended upwards and laterally. The fascia was then from the rectus muscles inferiorly and superiorly. The rectus muscle was in the midline down to the level of pubic symphysis. The peritoneum was entered in with careful dissection. The lower uterine segment was noted, and Juan Ramon retractor was placed to expose the lower uterine segment. Bladder flap was created without difficulty. The lower uterine incision was then made. Then, the fetus was in cephalic position and was brought to the level of the incision without any difficulty. With fundal pressure, the fetus was delivered. Delayed cord clamping was observed. The was handed to the awaiting conservation engineer. The cord blood gases were obtained. Placenta was delivered by manual massage of the uterine fundus. The uterus was cleaned with laparotomy sponge. The uterus was then repaired in layers; first layer with 0 Vicryl, second layer with 0 Monocryl. Then, the Juan Ramon retractor was removed. The gutters were cleaned. The adnexa were noted to be normal, and the ovaries were also normal. The incision was inspected and noted to be hemostatic. The peritoneum was closed with 3-0 Vicryl. The skin and the muscle were apposed also with 3-0 Vicryl. Then, the fascia was closed with 0 Vicryl. The subcutaneous fat was closed with 3-0 plain gut, and the skin was closed with 3-0 Monocryl on a Isaac needle. All instrument and pad counts were correct x2. The patient tolerated the procedure well and was taken to the recovery room in stable condition. ELIDA MCNAIR /[id number] MTDD
--- NOTE | 2020-08-12 07:59 | PCM.PNPP ---
- General Info Date of Service: 08/12/20 Subjective Update: 29yo P2 s/p repeat nausea improved with scopolamine good pain control Marie out - will follow void Functional Status: Reports: Pain Controlled, Tolerating Diet, Ambulating - Review of Systems General: Reports: No Symptoms HEENT: Reports: No Symptoms Pulmonary: Reports: No Symptoms Cardiovascular: Reports: No Symptoms Gastrointestinal: Reports: No Symptoms Genitourinary: Reports: No Symptoms Musculoskeletal: Reports: No Symptoms Skin: Reports: No Symptoms Neurological: Reports: No Symptoms - General Info Date of Service: 08/12/20 - Patient Data Vital Signs - Most Recent: Last Vital Signs Temp 37.1 C 08/12/20 07:32 Pulse 66 08/12/20 07:32 Resp 20 08/12/20 07:32 BP 117/75 08/12/20 07:32 Pulse Ox 95 08/12/20 07:32 Weight - Most Recent: 93.894 kg I&O - Last 24 Hours: Intake & Output 08/11/20 08/12/20 08/12/20 22:59 06:59 14:59 Intake Total 240 1711 Output Total 1230 1575 Balance -990 136 Lab Results - Last 24 Hours: Laboratory Results - last 24 hr 08/11/20 08/11/20 08/11/20 Range/Units 09:01 09:01 10:15 Hgb (12.0-16.0) g/dL Hct (36.0-46.0) % Cord ABG pH 7.208 (7.18-7.38) Cord ABG Base Excess -7 (-10--2) Cord VBG pH 7.241 L (7.25-7.45) Cord VBG Base Excess -6 (-10--2) Screen NEGATIVE (NEGATIVE) RhIG Candidate? YES Rhogam Indicated YES, BABY RH POS H 08/12/20 Range/Units 06:23 Hgb 9.4 L (12.0-16.0) g/dL Hct 29.4 L (36.0-46.0) % Cord ABG pH (7.18-7.38) Cord ABG Base Excess (-10--2) Cord VBG pH (7.25-7.45) Cord VBG Base Excess (-10--2) Screen (NEGATIVE) RhIG Candidate? Rhogam Indicated Med Orders - Current: Current Medications Bisacodyl (Dulcolax) 10 mg RECTAL ONETIME PRN PRN Reason: Constipation Dexamethasone (Decadron) 4 mg IVPUSH Q6H PRN PRN Reason: Congestion Diphenhydramine HCl (Benadryl) 25 mg IVPUSH Q6H PRN PRN Reason: Itching or Nausea Docusate Sodium (Colace) 100 mg PO BID [facility] Last Admin: 08/11/20 22:06 Dose: Not Given Documented by: Emollient Ointment (Lansinoh Hpa) 0 gm TOP ASDIRECTED PRN PRN Reason: Sore Nipples Fentanyl (Sublimaze) 50 mcg IVPUSH Q5M PRN PRN Reason: Pain (severe 7-10) Stop: 08/12/20 08:48 Oxytocin/Sodium Chloride (Oxytocin 30 Unit/500 Ml-Ns) 30 unit in 500 mls @ 250 mls/hr IV TITRATE [facility] Lactated Ringer's (Ringers, Lactated) 1,000 mls @ 500 mls/hr IV BOLUS [facility] Last Admin: 08/11/20 07:45 Dose: 500 mls/hr Documented by: Lactated Ringer's (Ringers, Lactated) 1,000 mls @ 125 mls/hr IV ASDIRECTED [facility] Last Admin: 08/11/20 20:02 Dose: 125 mls/hr Documented by: Oxytocin/Lactated Ringer's (Pitocin In Lr 30 Units/500 Ml) 30 unit in 500 mls @ 2 mls/hr IV TITRATE [facility]; Protocol Tranexamic Acid 1,000 mg/ (Sodium Chloride) 110 mls @ 660 mls/hr IV ONETIME PRN PRN Reason: Bleeding Ibuprofen (Motrin) 800 mg PO Q8H PRN PRN Reason: mild pain or fever Ketorolac Tromethamine (Toradol) 30 mg IVPUSH Q6H [facility] Stop: 08/12/20 10:16 Last Admin: 08/12/20 03:34 Dose: 30 mg Documented by: Methylergonovine Maleate (Methergine) 0.2 mg IM ONETIME PRN PRN Reason: Excessive Vaginal Bleeding Misoprostol (Cytotec) 1,000 mcg RECTAL ONETIME PRN PRN Reason: excessive bleeding Nalbuphine HCl (Nubain) 2.5 mg IVPUSH Q3H PRN PRN Reason: Pruritis Stop: 08/12/20 08:48 Ondansetron HCl (Zofran) 4 mg IVPUSH Q4H PRN PRN Reason: Nausea/Vomiting Last Admin: 08/11/20 18:22 Dose: 4 mg Documented by: Oxycodone/Acetaminophen (Percocet 325-5 Mg) 1 tab PO ONETIME PRN PRN Reason: Pain (moderate 4-6) Oxycodone/Acetaminophen (Percocet 325-5 Mg) 1 tab PO Q4H PRN PRN Reason: Pain (moderate 4-6) Oxycodone/Acetaminophen (Percocet 325-5 Mg) 2 tab PO Q4H PRN PRN Reason: Pain (moderate 4-6) Oxytocin (Pitocin) 10 unit IM ASDIRECTED PRN PRN Reason: Excessive Vaginal Bleeding Scopolamine (Transderm-Scop) 1.5 mg TRDERM Q72H PRN PRN Reason: Nausea Last Admin: 08/11/20 20:35 Dose: 1.5 mg Documented by: Sodium Chloride (Saline Flush) 10 ml FLUSH ASDIRECTED PRN PRN Reason: Keep Vein Open Sodium Chloride (Saline Flush) 2.5 ml FLUSH ASDIRECTED PRN PRN Reason: Keep Vein Open Sodium Chloride (Normal Saline) 10 ml IV ASDIRECTED PRN PRN Reason: IV Use Discontinued Medications Citric Acid/Sodium Citrate (Bicitra Solution) 30 ml PO ONETIME ONE Stop: 08/11/20 05:30 Last Admin: 08/11/20 07:52 Dose: 30 ml Documented by: Citric Acid/Sodium Citrate (Bicitra Solution) Confirm Administered Dose 30 ml .ROUTE .STK-MED ONE Stop: 08/11/20 07:51 Last Admin: 08/11/20 16:27 Dose: Not Given Documented by: Dexamethasone (Dexamethasone) Confirm Administered Dose 20 mg .ROUTE .STK-MED ONE Stop: 08/11/20 09:12 Dexamethasone (Decadron) 4 mg IVPUSH Q6H [facility] Last Admin: 08/12/20 04:03 Dose: Not Given Documented by: Ephedrine Sulfate (Ephedrine Sulfate) Confirm Administered Dose 50 mg .ROUTE .STK-MED ONE Stop: 08/11/20 08:51 Clindamycin Phosphate 900 mg/ (Premix) 50 mls @ 100 mls/hr IV ONETIME ONE Stop: 08/11/20 08:29 Last Admin: 08/11/20 16:29 Dose: Not Given Documented by: Gentamicin Sulfate 80 mg/ (Sodium Chloride) 102 mls @ 204 mls/hr IV ONETIME ONE Stop: 08/11/20 08:30 Last Admin: 08/11/20 16:29 Dose: Not Given Documented by: Ketorolac Tromethamine (Toradol) Confirm Administered Dose 30 mg .ROUTE .STK-MED ONE Stop: 08/11/20 09:12 Metoclopramide HCl (Reglan) 10 mg IVPUSH ONETIME ONE Stop: 08/11/20 15:04 Last Admin: 08/11/20 15:22 Dose: 10 mg Documented by: Morphine Sulfate (Duramorph Pf) Confirm Administered Dose 10 mg .ROUTE .STK-MED ONE Stop: 08/11/20 07:37 Ondansetron HCl (Zofran) Confirm Administered Dose 4 mg .ROUTE .STK-MED ONE Stop: 08/11/20 08:51 Ondansetron HCl (Zofran) Confirm Administered Dose 4 mg .ROUTE .STK-MED ONE Stop: 08/11/20 09:19 Ondansetron HCl (Zofran) 4 mg IVPUSH ONETIME ONE Stop: 08/11/20 15:04 Last Admin: 08/11/20 15:24 Dose: 4 mg Documented by: Oxytocin (Pitocin) Confirm Administered Dose 30 unit .ROUTE .STK-MED ONE Stop: 08/11/20 08:15 - Infant Interaction Support Person: - Recovery Exam Fundal Tone: Firm Fundal Level: 1 Fingerbreadths Below Umbilicus Fundal Placement: Midline Lochia Amount: Scant Lochia Color: Rubra/Red Perineum Description: Intact, Minimal Bruising/Swelling Episiotomy/Laceration: None Bladder Status: Indwelling Catheter in Place Urinary Elimination: Indwelling Catheter - Exam General: Alert HEENT: Pupils Equal Neck: Supple Lungs: Clear to Auscultation Cardiovascular: Regular Rate, Regular Rhythm GI/Abdominal Exam: Normal Bowel Sounds Extremities: Normal Inspection Wound/Incisions: Dressing Dry and Intact Neurological: No New Focal Deficit Psy/Mental Status: Alert - Problem List & Annotations (1) delivery delivered SNOMED Code(s): 556710552 Code(s): O82 - ENCOUNTER FOR DELIVERY WITHOUT INDICATION Status: Acute Current Visit: No - Problem List Review Problem List Initiated/Reviewed/Updated: Yes - My Orders Last 24 Hours: My Active Orders 08/11/20 10:09 Patient Status [ADT] Routine Ambulate [RC] PER UNIT ROUTINE Antiembolic Devices [RC] PER UNIT ROUTINE Communication Order [RC] PER UNIT ROUTINE Communication Order [RC] PER UNIT ROUTINE Communication Order [RC] Per Unit Routine May Shower [RC] ASDIRECTED Notify Provider Intake and Out [RC] ASDIRECTED Notify Provider Vital Signs [RC] ASDIRECTED RT Incentive Spirometry [RC] Q2HWA Vital Signs [RC] PER UNIT ROUTINE Acetaminophen/oxyCODONE [Percocet 325-5 MG] 1 tab PO Q4H PRN Acetaminophen/oxyCODONE [Percocet 325-5 MG] 2 tab PO Q4H PRN Lanolin [Lansinoh HPA] See Dose Instructions TOP ASDIRECTED PRN Methylergonovine [Methergine] 0.2 mg IM ONETIME PRN Ondansetron [Zofran] 4 mg IVPUSH Q4H PRN Oxytocin [Pitocin] 10 unit IM ASDIRECTED PRN Tranexamic Acid [Cyklokapron] 1,000 mg Sodium Chloride 0.9% [Normal Saline] 100 ml IV ONETIME bisacodyL [Dulcolax] 10 mg RECTAL ONETIME PRN diphenhydrAMINE [Benadryl] 25 mg IVPUSH Q6H PRN miSOPROStoL [Cytotec] 1,000 mcg RECTAL ONETIME PRN Assess Lochia [WOMSER] Per Unit Routine Assess Uterine Involution [WOMSER] Per Unit Routine Breast Pump [WOMSER] Per Unit Routine Peripheral IV Discontinue [OM.PC] Routine Sequential Compression Device [OM.PC] Per Unit Routine Resuscitation Status Routine 08/11/20 10:15 Ketorolac [Toradol] 30 mg IVPUSH Q6H Lactated Ringers [Ringers, Lactated] 1,000 ml IV ASDIRECTED Oxytocin/Lactated Ringers [Pitocin in LR 30 Units/500 ML] 30 unit in 500 ml IV TITRATE 08/11/20 Dinner Regular Diet [DIET] 08/11/20 21:00 Docusate Sodium [Colace] 100 mg PO BID 08/12/20 16:15 Ibuprofen [Motrin] 800 mg PO Q8H PRN - Assessment Assessment:: 29yo P2 s/p repeat cesaerean , stable post op , normal lochia venodynes Pain control as needed marie out- follow void - Plan Plan:: Routine Pain control as needed marie void
[2020-08-12] MEDS ORDERED: Dexamethasone 4 MG/ML SDV IVPUSH PRN (08:00)
[2020-08-12] MEDS: Docusate Sodium 100 MG Cap PO SCH ×2 (09:39→20:36)
--- NOTE | 2020-08-12 10:13 | PCM48HPAN ---
Post Anesthesia Note - EVALUATION WITHIN 48HRS OF ANESTHETIC Vital Signs in Normal Range: Yes Patient Participated in Evaluation: Yes Respiratory Function Stable: Yes Airway Patent: Yes Cardiovascular Function Stable: Yes Hydration Status Stable: Yes Pain Control Satisfactory: Yes (Reports adequate pain control. 1 to 11/11 at this time.) Nausea and Vomiting Control Satisfactory: Yes Mental Status Recovered: Yes Vital Signs: Last Vital Signs Temp 37.1 C 08/12/20 07:32 Pulse 66 08/12/20 07:32 Resp 20 08/12/20 07:32 BP 117/75 08/12/20 07:32 Pulse Ox 95 08/12/20 07:32 - COMMENTS/OBSERVATIONS Free Text/Narrative:: Phone consult last night for nausea, relieved with decadron and scopolamine. Denies nausea this AM after a full breakfast. Ambulating without difficulty, reports full return of strength and sensation to BLE.
[2020-08-12] MEDS: Ibuprofen 800 MG Tab PO PRN (16:09)
[2020-08-12] MEDS ORDERED: Acetaminophen 500 MG Tab PO PRN (20:48)
[2020-08-12] MEDS: Acetaminophen 500 MG Tab PO PRN (21:19)
[2020-08-13] MEDS: Ibuprofen 800 MG Tab PO PRN (00:15)
[2020-08-13 03:46] VITALS: PULSE 77
[2020-08-13] MEDS: Acetaminophen 500 MG Tab PO PRN (05:06)
[2020-08-13 08:31] VITALS: BP 123/69
[2020-08-13] MEDS: Docusate Sodium 100 MG Cap PO SCH (09:28)
--- NOTE | 2020-08-13 09:30 | PCM.PNPP ---
- General Info Date of Service: 08/13/20 Subjective Update: 29yo P2 s/p repeat POD2 good pain control Functional Status: Reports: Pain Controlled, Tolerating Diet, Ambulating, Urinating - Review of Systems General: Reports: No Symptoms HEENT: Reports: No Symptoms Pulmonary: Reports: No Symptoms Cardiovascular: Reports: No Symptoms Gastrointestinal: Reports: No Symptoms Genitourinary: Reports: No Symptoms Musculoskeletal: Reports: No Symptoms Skin: Reports: No Symptoms Neurological: Reports: No Symptoms Psychiatric: Reports: No Symptoms - General Info Date of Service: 08/13/20 - Patient Data Vital Signs - Most Recent: Last Vital Signs Temp 36.1 C 08/13/20 08:31 Pulse 77 08/13/20 03:45 Resp 16 08/13/20 08:31 BP 123/69 08/13/20 08:31 Pulse Ox 95 08/13/20 08:31 Weight - Most Recent: 93.894 kg Lab Results - Last 24 Hours: Laboratory Results - last 24 hr 08/11/20 Range/Units 06:27 RPR Non-Reac (Non-Reac) Med Orders - Current: Current Medications Acetaminophen (Tylenol Extra Strength) 500 mg PO Q6H PRN PRN Reason: Pain Acetaminophen (Tylenol Extra Strength) 1,000 mg PO Q6H PRN PRN Reason: Pain Last Admin: 08/13/20 05:06 Dose: 1,000 mg Documented by: Bisacodyl (Dulcolax) 10 mg RECTAL ONETIME PRN PRN Reason: Constipation Dexamethasone (Decadron) 4 mg IVPUSH Q6H PRN PRN Reason: Congestion Diphenhydramine HCl (Benadryl) 25 mg IVPUSH Q6H PRN PRN Reason: Itching or Nausea Docusate Sodium (Colace) 100 mg PO BID [facility] Last Admin: 08/12/20 20:36 Dose: 100 mg Documented by: Emollient Ointment (Lansinoh Hpa) 0 gm TOP ASDIRECTED PRN PRN Reason: Sore Nipples Last Admin: 08/12/20 20:36 Dose: 7 gm Documented by: Oxytocin/Sodium Chloride (Oxytocin 30 Unit/500 Ml-Ns) 30 unit in 500 mls @ 250 mls/hr IV TITRATE [facility] Lactated Ringer's (Ringers, Lactated) 1,000 mls @ 500 mls/hr IV BOLUS [facility] Last Admin: 08/11/20 07:45 Dose: 500 mls/hr Documented by: Lactated Ringer's (Ringers, Lactated) 1,000 mls @ 125 mls/hr IV ASDIRECTED [facility] Last Admin: 08/11/20 20:02 Dose: 125 mls/hr Documented by: Oxytocin/Lactated Ringer's (Pitocin In Lr 30 Units/500 Ml) 30 unit in 500 mls @ 2 mls/hr IV TITRATE [facility]; Protocol Tranexamic Acid 1,000 mg/ (Sodium Chloride) 110 mls @ 660 mls/hr IV ONETIME PRN PRN Reason: Bleeding Ibuprofen (Motrin) 800 mg PO Q8H PRN PRN Reason: mild pain or fever Last Admin: 08/13/20 00:15 Dose: 800 mg Documented by: Methylergonovine Maleate (Methergine) 0.2 mg IM ONETIME PRN PRN Reason: Excessive Vaginal Bleeding Misoprostol (Cytotec) 1,000 mcg RECTAL ONETIME PRN PRN Reason: excessive bleeding Ondansetron HCl (Zofran) 4 mg IVPUSH Q4H PRN PRN Reason: Nausea/Vomiting Last Admin: 08/11/20 18:22 Dose: 4 mg Documented by: Oxytocin (Pitocin) 10 unit IM ASDIRECTED PRN PRN Reason: Excessive Vaginal Bleeding Scopolamine (Transderm-Scop) 1.5 mg TRDERM Q72H PRN PRN Reason: Nausea Last Admin: 08/11/20 20:35 Dose: 1.5 mg Documented by: Sodium Chloride (Saline Flush) 10 ml FLUSH ASDIRECTED PRN PRN Reason: Keep Vein Open Sodium Chloride (Saline Flush) 2.5 ml FLUSH ASDIRECTED PRN PRN Reason: Keep Vein Open Sodium Chloride (Normal Saline) 10 ml IV ASDIRECTED PRN PRN Reason: IV Use Discontinued Medications Citric Acid/Sodium Citrate (Bicitra Solution) 30 ml PO ONETIME ONE Stop: 08/11/20 05:30 Last Admin: 08/11/20 07:52 Dose: 30 ml Documented by: Citric Acid/Sodium Citrate (Bicitra Solution) Confirm Administered Dose 30 ml .ROUTE .STK-MED ONE Stop: 08/11/20 07:51 Last Admin: 08/11/20 16:27 Dose: Not Given Documented by: Dexamethasone (Dexamethasone) Confirm Administered Dose 20 mg .ROUTE .STK-MED ONE Stop: 08/11/20 09:12 Dexamethasone (Decadron) 4 mg IVPUSH Q6H [facility] Last Admin: 08/12/20 04:03 Dose: Not Given Documented by: Dexamethasone (Decadron) 4 mg IVPUSH Q6H PRN PRN Reason: Congestion Ephedrine Sulfate (Ephedrine Sulfate) Confirm Administered Dose 50 mg .ROUTE .STK-MED ONE Stop: 08/11/20 08:51 Fentanyl (Sublimaze) 50 mcg IVPUSH Q5M PRN PRN Reason: Pain (severe 7-10) Stop: 08/12/20 08:48 Clindamycin Phosphate 900 mg/ (Premix) 50 mls @ 100 mls/hr IV ONETIME ONE Stop: 08/11/20 08:29 Last Admin: 08/11/20 16:29 Dose: Not Given Documented by: Gentamicin Sulfate 80 mg/ (Sodium Chloride) 102 mls @ 204 mls/hr IV ONETIME ONE Stop: 08/11/20 08:30 Last Admin: 08/11/20 16:29 Dose: Not Given Documented by: Ketorolac Tromethamine (Toradol) Confirm Administered Dose 30 mg .ROUTE .STK-MED ONE Stop: 08/11/20 09:12 Ketorolac Tromethamine (Toradol) 30 mg IVPUSH Q6H [facility] Stop: 08/12/20 10:16 Last Admin: 08/12/20 09:40 Dose: 30 mg Documented by: Metoclopramide HCl (Reglan) 10 mg IVPUSH ONETIME ONE Stop: 08/11/20 15:04 Last Admin: 08/11/20 15:22 Dose: 10 mg Documented by: Morphine Sulfate (Duramorph Pf) Confirm Administered Dose 10 mg .ROUTE .STK-MED ONE Stop: 08/11/20 07:37 Nalbuphine HCl (Nubain) 2.5 mg IVPUSH Q3H PRN PRN Reason: Pruritis Stop: 08/12/20 08:48 Ondansetron HCl (Zofran) Confirm Administered Dose 4 mg .ROUTE .STK-MED ONE Stop: 08/11/20 08:51 Ondansetron HCl (Zofran) Confirm Administered Dose 4 mg .ROUTE .STK-MED ONE Stop: 08/11/20 09:19 Ondansetron HCl (Zofran) 4 mg IVPUSH ONETIME ONE Stop: 08/11/20 15:04 Last Admin: 08/11/20 15:24 Dose: 4 mg Documented by: Oxycodone/Acetaminophen (Percocet 325-5 Mg) 1 tab PO ONETIME PRN PRN Reason: Pain (moderate 4-6) Oxycodone/Acetaminophen (Percocet 325-5 Mg) 1 tab PO Q4H PRN PRN Reason: Pain (moderate 4-6) Oxycodone/Acetaminophen (Percocet 325-5 Mg) 2 tab PO Q4H PRN PRN Reason: Pain (moderate 4-6) Oxytocin (Pitocin) Confirm Administered Dose 30 unit .ROUTE .STK-MED ONE Stop: 08/11/20 08:15 - Infant Interaction Support Person: - Recovery Exam Fundal Tone: Firm Fundal Level: 1 Fingerbreadths Below Umbilicus Fundal Placement: Midline Lochia Amount: Scant Lochia Color: Brownish Perineum Description: Intact, Minimal Bruising/Swelling Episiotomy/Laceration: None Bladder Status: Voiding Urinary Elimination: Voided Other Urinary Elimination, : Due to void - Exam General: Alert HEENT: Pupils Equal Neck: Supple Lungs: Clear to Auscultation Cardiovascular: Regular Rate, Regular Rhythm GI/Abdominal Exam: Normal Bowel Sounds Wound/Incisions: Dressing Dry and Intact Neurological: No New Focal Deficit - Problem List & Annotations (1) delivery delivered SNOMED Code(s): 208381408 Code(s): O82 - ENCOUNTER FOR DELIVERY WITHOUT INDICATION Status: Acute Current Visit: No - Problem List Review Problem List Initiated/Reviewed/Updated: Yes - My Orders Last 24 Hours: My Active Orders 08/12/20 16:15 Ibuprofen [Motrin] 800 mg PO Q8H PRN - Assessment Assessment:: 29yo P2 s/p repeat cesaerean , stable post op, PPD2 , normal lochia venodynes Pain control as needed - Plan Plan:: Routine Discharge home today Incentive spirometry
[2020-08-13] MEDS ORDERED: Acetaminophen/oxyCODONE 325-5 MG Tab PO ONE (10:19)
== END 2020-08-13 11:00 | disposition home or self-care (01) | DRG 787 ==
LOC: MW.OB 05:26
PROVIDERS: ADMIT Obstetrics & Gynecology; ATTEND Obstetrics & Gynecology
PROC: 10D00Z1 Extraction of Products of Conception, Low, Open Approach (ICD-10-PCS; principal; 2020-08-11)
PROC: 3E0234Z Introduction of Serum, Toxoid and Vaccine into Muscle, Percutaneous Approach (ICD-10-PCS; 2020-08-12)
DX: O34.211 Maternal care for low transverse scar from previous cesarean delivery (principal); O99.12 Other diseases of the blood and blood-forming organs and certain disorders involving the immune mechanism complicating childbirth; Z37.0 Single live birth; Z3A.39 39 weeks gestation of pregnancy; D69.6 Thrombocytopenia, unspecified; O26.893 Other specified pregnancy related conditions, third trimester; Z67.11 Type A blood, Rh negative
CPT/HCPCS: 01961; 36415; 36430; 59025; 82803; 85014; 85018; 85027; 85460; 86592; 86850; 86900; 86901; 88307; A9270-GY; J1100; J1885; J2270; J2405; J2590; J2765; J2792; J7120